=== PATIENT | female | born 1965 | race Caucasian/White ===

== ENCOUNTER 2020-06-29 06:41 | Inpatient (IN) | payer OTHER ==
[2020-06-29] MEDS ORDERED: Ondansetron PF 4 MG/2 ML Vial ONE (07:15)
[2020-06-29] MEDS ORDERED: Morphine 4 MG/ML VIAL ONE ×2 (07:15→08:47)
[2020-06-29] MEDS ORDERED: Boostrix 0.5 ML VIAL ONE (07:16)
[2020-06-29] MEDS ORDERED: Ampicillin/Sulbactam 3 GM in Sodium Chloride 0.9% 100 ML IVPB SCH (07:30)
--- NOTE | 2020-06-29 07:34 | RAD ---
Frontal and lateral imaging right forearm: 06/29/2020 COMPARISON: None HISTORY: Trauma, pain FINDINGS: No fracture or dislocation. No radiopaque foreign body or subcutaneous gas. IMPRESSION: No acute findings.
--- NOTE | 2020-06-29 07:34 | RAD ---
Right hand 3 views: 06/29/2020 COMPARISON: None available HISTORY: Trauma, pain FINDINGS: No fracture or dislocation. No radiopaque foreign body or subcutaneous gas. IMPRESSION: No acute findings.
[2020-06-29 07:47] LABS: #Eosinphils 0.3 thou/uL (0.0-0.7); #Lymphocytes 3.2 thou/uL (1.20-3.40); #Monocytes 0.8 thou/uL (0.11-0.59); #Neutrophils 8.2 thou/uL (1.40-6.50); %Basophils 0.3 % (0.0-1.0); %Eosinophils 2.1 % (0.0-10.0); %Lymphocytes 25.3 % (21.0-51.0); %Monocytes 6.1 % (0.0-10.0); %Neutrophils 66.2 % (42.0-75.0); Hemoglobin 13.6 g/dL (12.0-16.0); Mean Corpuscular HGB CONC 32.6 g/dL (32.0-36.0); Mean Platelet Volume 7.2 fL (7.4-10.4); Platelet Count 261 thou/uL (130-400); RBC Distribution Width 13.7 % (11.5-14.5); Red Blood Cell (RBC) Count 5.04 mill/uL (4.20-5.40); White Blood Cell (WBC) Count 12.5 thou/uL (4.8-10.8)
[2020-06-29 08:15] LABS: ALT (SGPT) 57 U/L (8-55); AST (SGOT) 50 U/L (5-34); Albumin 3.5 g/dL (3.5-5.0); Alkaline Phosphatase 141 U/L (40-110); Anion Gap 10 mmol/L (10-20); BUN (Urea Nitrogen) 14 mg/dL (9.8-20.1); Bilirubin, Total 0.4 mg/dL (0.2-1.2); Calc. Creatinine Clearance 0 mL/min (70-130); Calcium 8.6 mg/dL (7.8-10.44); Carbon Dioxide 24 mmol/L (22-29); Chloride 103 mmol/L (98-107); Estimated GFR-MDRD 61; Globulin 3.3 g/dL (2.4-3.5); Glucose 184 mg/dL (70-105); Potassium 4.1 mmol/L (3.5-5.1); Protein, Total 6.8 g/dL (6.0-8.3); Sodium 133 mmol/L (136-145)
--- NOTE | 2020-06-29 09:54 | PDOC.FPRHP ---
- History of Present Illness Chief Complaint: R arm redness/swelling/pain History of Present Illness: Patient is a 55F presenting with R arm cellulitis s/p getting bitten by her cats when they got in a fight last night. This morning, she noticed redness/pain /swelling of her R hand/wrist/forearm and was brought to the ED by her roommate. She denies fever/chills/N/V/D/dyspnea/SOB. Her cats are UTD on their vaccines and she received a tetanus booster in the ED. Her WBC was elevated at 12.5 and she was tachycardic in the ED so she meets sepsis criteria. LA wnl, normotensive. ED Course: 1L of NS. 3g Unasyn IV. - Allergies/Adverse Reactions Allergies Allergy/AdvReac Type Severity Reaction Status Date / Time No Known Drug Allergies Allergy Verified 06/29/20 07:27 - Home Medications Medication Instructions Recorded Confirmed Type Albuterol Sulfate HFA (OR) 2 puff PO PRN PRN 06/29/20 06/29/20 History [Proventil Hfa (or)] Benztropine Mesylate 2 mg PO DAILY 06/29/20 06/29/20 History Budesonide/Formoterol Fumarate 2 puff PO DAILY 06/29/20 06/29/20 History [Budesonide-Formoterol 160-4.5] Cyclobenzaprine [Flexeril] 1 tab PO PRN PRN 06/29/20 06/29/20 History DULoxetine [Cymbalta] 60 mg PO DAILY 06/29/20 06/29/20 History Gabapentin [Neurontin] 300 mg PO TID 06/29/20 06/29/20 History Lurasidone HCl [Latuda] 1 tab PO DAILY 06/29/20 06/29/20 History QUEtiapine Fumarate [SEROquel] 1 tab PO HS 06/29/20 06/29/20 History guanFACINE HCl [guanFACINE HCl ER] 1 mg PO BID 06/29/20 06/29/20 History - History PMHx: PSHx: FHx: Social: - Review of Systems General: denies: fever/chills Respiratory: denies: shortness of breath Cardiovascular: reports: edema (Of R UE only). denies: chest pain Gastrointestinal: denies: vomiting, diarrhea Musculoskeletal: reports: pain, tenderness, swelling Psychological: reports: other (Hx of psych disorder) - Vital signs BP: 132/86 HR: 112 RR: 20 Tmax: 98.7F Pox: 95% on RA Wt: 118kg - Physical Exam Constitutional: NAD, awake, alert and oriented, well developed HEENT: normocephalic and atraumatic, EOMI, grossly normal vision, grossly normal hearing Neck: supple Heart: RRR (tachy), normal S1/S2, no murmurs/rubs/gallops, pulses present ( radial and dp b/l) Lungs: CTAB, no respiratory distress, good air movement -Lungs: Diffuse mild wheezing Musculoskeletal: normal structure, ROM grossly normal Neurological: no focal deficit Skin: capillary refill <2 seconds Heme/Lymphatic: no unusual bruising or bleeding -Psychiatric: Slow to answer questions, appears to have a limited memory. Unclear whether this is d/t limited health literacy or her psych problems. A&O x3. FMR H&P: Results - Labs Result Diagrams: 06/29/20 07:30 06/29/20 07:30 Lab results: WBC 12.5 thou/uL (4.8-10.8) H 06/29/20 07:30 Hgb 13.6 g/dL (12.0-16.0) 06/29/20 07:30 Hct 41.8 % (36.0-47.0) 06/29/20 07:30 MCV 83.0 fL (78.0-98.0) 06/29/20 07:30 Plt Count 261 thou/uL (130-400) 06/29/20 07:30 Neutrophils % 66.2 % (42.0-75.0) 06/29/20 07:30 Sodium 133 mmol/L (136-145) L 06/29/20 07:30 Potassium 4.1 mmol/L (3.5-5.1) 06/29/20 07:30 Chloride 103 mmol/L (98-107) 06/29/20 07:30 Carbon Dioxide 24 mmol/L (22-29) 06/29/20 07:30 BUN 14 mg/dL (9.8-20.1) 06/29/20 07:30 Creatinine 0.96 mg/dL (0.6-1.1) 06/29/20 07:30 Glucose 184 mg/dL (70-105) H 06/29/20 07:30 Lactic Acid 1.1 mmol/L (0.5-2.2) 06/29/20 07:54 Calcium 8.6 mg/dL (7.8-10.44) 06/29/20 07:30 Total Bilirubin 0.4 mg/dL (0.2-1.2) 06/29/20 07:30 AST 50 U/L (5-34) H 06/29/20 07:30 ALT 57 U/L (8-55) H 06/29/20 07:30 Alkaline Phosphatase 141 U/L (40-110) H 06/29/20 07:30 Serum Total Protein 6.8 g/dL (6.0-8.3) 06/29/20 07:30 Albumin 3.5 g/dL (3.5-5.0) 06/29/20 07:30 FMR H&P: A/P - Plan This is a 55yo F pt presenting with R hand/forearm cellulitis. Sepsis 2/2 R UE cellulitis - SIRS: Tachycardic with WBCs 12.5 - LA 1.1 - Procal pending - Tetanus booster admin in ED - R hand and forearm XRs show no acute findings/foreign bodies - Unasyn 3g given in ED. Will continue q6h - Received 1L bolus in ED. Ordered another 1L bolus d/t continued tachycardia - Naproxen scheduled with Tramadol prn - BCx pending - Daily CBCs T2DM - Med rec shows patient takes Metformin but no DM dx - BG on arrival 184 - A1c 6.4% - Start home Metformin 500mg - Monitor BGs Mild transaminitis - AST 50, ALT 57, Alk Phos 141 - Daily CMPs Asthma - Uses albuterol and Symbicort inhalers at home - Continue albuterol Bipolar disorder - Documented in clinic chart - Continue home meds Drug-induced akathisia - Per clinic records - Continue home meds Dispo: Inpt floor, LOS >48h Diet: Diabetic diet DVT Ppx: SCDs Fluids: boluses, no mIVF FMR H&P: Upper Level - Plan Date/Time: 06/29/20 0953 I, [], have evaluated this patient and agree with findings/plan as outlined by internal audit senior manager resident. Pertinent changes/additions are listed here. Addendum - Attending - Attending Attestation Date/Time: 06/29/20 3618 I personally evaluated the patient and discussed the management with Dr. Jerson Robert. I agree with the History, Examination, Assessment and Plan documented above with any addition or exceptions noted below. PMH: asthma, DM, obesity PSH: reviewed not pertinent FH: noncontributory SH: denies T/E/D Meds: metformin, symbicort, albuterol NKDA Low suspcision for nec fasc or comp synd at this time. Continue unasyn. Await cultures.
[2020-06-29] MEDS ORDERED: Ondansetron PF 4 MG/2 ML Vial IVP PRN (10:43)
[2020-06-29] MEDS ORDERED: Ondansetron ODT 4 MG TAB SL PRN (10:43)
[2020-06-29 10:51] VITALS: BMI 47.5
[2020-06-29] MEDS: Acetaminophen 325 MG TAB PO PRN ×2 (11:06→15:53)
[2020-06-29] MEDS ORDERED: Lactated Ringer's 1,000 ML IV SCH (12:45)
[2020-06-29 13:16] LABS: Hemoglobin A1c 6.4 % (4.0-6.0)
[2020-06-29] MEDS: traMADol HCl 50 MG TAB PO PRN (13:37)
[2020-06-29] MEDS: Ampicillin/Sulbactam 3 GM in Sodium Chloride 0.9% 100 ML IVPB SCH ×2 (13:37→20:45)
[2020-06-29] MEDS: Naproxen 500 MG TAB PO SCH ×2 (14:35→20:42)
[2020-06-29 17:08] LABS: SARS-CoV-2 MS2 Positive; SARS-CoV-2 N Gene Negative; SARS-CoV-2 S Gene Negative; SARS-CoV-2 by NAA Not Detected (NotDetected); SARS-CoV-2 orf1ab Negative
[2020-06-29] MEDS ORDERED: Albuterol Sulfate 2.5 mg/3 ml Neb NEB PRN (18:15)
[2020-06-29] MEDS: Mometasone 200 MCG/Formoterol 5 MCG 120 PUFF INHALER INH SCH (19:08)
[2020-06-29] MEDS: Famotidine 20 MG TAB PO SCH (20:42)
[2020-06-29] MEDS: Gabapentin 300 MG CAP PO SCH (20:42)
[2020-06-29] MEDS ORDERED: GUANFACINE HCL 1 MG PO SCH (21:00)
[2020-06-30] MEDS: Ampicillin/Sulbactam 3 GM in Sodium Chloride 0.9% 100 ML IVPB SCH ×4 (01:44→19:43)
--- NOTE | 2020-06-30 05:48 | PDOC.FM ---
- Subjective Subjective: Sintia is doing better this morning. She endorses improvement in pain. She denies subjective fever/chills/V/D. - Objective Vital Signs & Weight: Vital Signs (12 hours) Temp Pulse Resp BP Pulse Ox 06/30/20 02:30 97.8 F 89 18 109/67 96 06/29/20 20:40 95 06/29/20 20:35 97.8 F 80 18 98/60 95 06/29/20 19:08 105 H 12 94 L Weight Weight 117.9 kg I&O: 06/28/20 06/29/20 06/30/20 06:59 06:59 06:59 Intake Total 600 Balance 600 Result Diagrams: 06/30/20 05:18 06/30/20 05:18 Phys Exam - Physical Examination Constitutional: NAD (Sleeping comfortably, easily arousable) Neck: supple Respiratory: no wheezing, no rales, clear to auscultation bilateral (Sounded a little tight, but no wheezing) Cardiovascular: RRR, no significant murmur Gastrointestinal: soft, non-tender, no distention, positive bowel sounds Musculoskeletal: pulses present (rabial pulses 2+ b/l), edema present (in R hand and forearm. Decreased from yesterday) Neurological: moves all 4 limbs Psychiatric: normal affect, A&O x 3 Skin: no rash Deviation from normal: Erythematous R hand/forearm, improved from yesterday Dx/Plan - Plan Plan: This is a 55yo F pt presenting with R hand/forearm cellulitis. Sepsis 2/2 R UE cellulitis - SIRS: Tachycardic with WBCs 12.5 - LA 1.1 - Procal pending - Tetanus booster admin in ED - R hand and forearm XRs show no acute findings/foreign bodies - Unasyn 3g given in ED. Will continue q6h - Received 1L bolus in ED. Ordered another 1L bolus d/t continued tachycardia - Naproxen scheduled with Tramadol prn - BCx pending - Daily CBCs. Normal today. T2DM - Med rec shows patient takes Metformin but no DM dx - BG on arrival 184 - A1c 6.4% - Start home Metformin 500mg - Monitor BGs Mild transaminitis - AST 50, ALT 57, Alk Phos 141 - Daily CMPs Asthma - Uses albuterol and Symbicort inhalers at home - Continue albuterol Bipolar disorder - Documented in clinic chart - Continue home meds Drug-induced akathisia - Per clinic records - Continue home meds Dispo: Inpt floor, LOS >48h Diet: Diabetic diet DVT Ppx: SCDs Fluids: boluses, no mIVF Addendum - Attending - Attending Attestation Date/Time: 06/30/20 1214 I personally evaluated the patient and discussed the management with Dr. Victoria. I agree with the History, Examination, Assessment and Plan documented above with any addition or exceptions noted below. Continue antibiotics. Consider switching to PO tomorrow. Improving on exam.
[2020-06-30 05:56] LABS: Hemoglobin 13.5 g/dL (12.0-16.0); Mean Corpuscular HGB CONC 32.2 g/dL (32.0-36.0); Mean Corpuscular Hemoglobin 27.2 pg (27.0-31.0); Mean Corpuscular Volume 84.4 fL (78.0-98.0); Mean Platelet Volume 7.3 fL (7.4-10.4); Platelet Count 237 thou/uL (130-400); RBC Distribution Width 13.9 % (11.5-14.5); Red Blood Cell (RBC) Count 4.97 mill/uL (4.20-5.40); White Blood Cell (WBC) Count 10.1 thou/uL (4.8-10.8)
[2020-06-30 06:02] LABS: Band 2 % (5-11); Eosinophils 3 % (0-10); Lymphocytes 28 % (21-51); MDiff Complete? YES; Monocytes 6 % (0-10); Neutrophil 60 % (42-75); Reactive Lymphocytes 1 % (0-10)
[2020-06-30 06:06] LABS: ALT (SGPT) 50 U/L (8-55); AST (SGOT) 48 U/L (5-34); Albumin 3.1 g/dL (3.5-5.0); Alkaline Phosphatase 127 U/L (40-110); Anion Gap 11 mmol/L (10-20); BUN (Urea Nitrogen) 10 mg/dL (9.8-20.1); Bilirubin, Total 0.4 mg/dL (0.2-1.2); Calc. Creatinine Clearance 148 mL/min (70-130); Calcium 8.5 mg/dL (7.8-10.44); Carbon Dioxide 23 mmol/L (22-29); Chloride 110 mmol/L (98-107); Estimated GFR-MDRD 74; Globulin 3.2 g/dL (2.4-3.5); Glucose 113 mg/dL (70-105); Potassium 4.2 mmol/L (3.5-5.1); Protein, Total 6.3 g/dL (6.0-8.3); Sodium 140 mmol/L (136-145)
[2020-06-30] MEDS: Mometasone 200 MCG/Formoterol 5 MCG 120 PUFF INHALER INH SCH ×2 (06:47→19:39)
[2020-06-30] MEDS: Benztropine 1 MG TAB PO SCH (08:11)
[2020-06-30] MEDS: DULoxetine 60 MG CAP PO SCH (08:11)
[2020-06-30] MEDS: Famotidine 20 MG TAB PO SCH ×2 (08:11→19:44)
[2020-06-30] MEDS: Gabapentin 300 MG CAP PO SCH ×3 (08:12→19:44)
[2020-06-30] MEDS: Naproxen 500 MG TAB PO SCH ×3 (08:12→19:44)
[2020-06-30] MEDS ORDERED: LURASIDONE HCL 40 MG PO SCH (09:00)
[2020-06-30] MEDS ORDERED: Cyclobenzaprine 10 MG TAB PO PRN (09:00)
[2020-07-01] MEDS: Ampicillin/Sulbactam 3 GM in Sodium Chloride 0.9% 100 ML IVPB SCH ×2 (02:07→08:33)
--- NOTE | 2020-07-01 05:49 | PDOC.FM ---
- Subjective Subjective: Patient says her right hand pain is well controlled. She is now able to move her hand and fingers with full ROM. She notes that the redness has progressed beyond the markings towards her elbow. She denies masses in axilla. She also denies headache, vision changes, chest pain, SOB, nausea, abdominal pain and lower extremity edema. - Objective MAR Reviewed: Yes Vital Signs & Weight: Vital Signs (12 hours) Pulse Resp Pulse Ox 06/30/20 20:00 96 06/30/20 19:39 93 16 96 Weight Weight 117.9 kg I&O: 06/29/20 06/30/20 07/01/20 06:59 06:59 06:59 Intake Total 1250 480 Balance 1250 480 Result Diagrams: 07/01/20 06:03 07/01/20 06:03 Phys Exam - Physical Examination Constitutional: NAD HEENT: moist MMs, sclera anicteric Neck: supple, full ROM Respiratory: no wheezing, clear to auscultation bilateral Cardiovascular: RRR, no significant murmur Gastrointestinal: soft, non-tender, positive bowel sounds Musculoskeletal: no edema, pulses present Right hand edema present. Full ROM. Nontender Erythema extends beyond border to elbow Neurological: non-focal, moves all 4 limbs Lymphatic: no nodes Psychiatric: normal affect, A&O x 3 Skin: no rash, cap refill <2 seconds Dx/Plan - Plan Plan: This is a 55yo F pt presenting with R hand/forearm cellulitis. Sepsis, now resolved 2/2 R UE cellulitis - Met SIRS criteria on admission: Tachycardic with WBCs 12.5. LA 1.1 - Tetanus booster admin in ED - R hand and forearm XRs show no acute findings/foreign bodies - BCx negative for growth - Will dc Unasyn and begin Rocefin and Clindamycin T2DM - Med rec shows patient takes Metformin but no DM dx - A1c 6.4% - Start home Metformin 500mg - Monitor BGs Mild transaminitis, resolved - AST 50, ALT 57, Alk Phos 141 on admission - now WNL Asthma - Uses albuterol and Symbicort inhalers at home - Continue albuterol Bipolar disorder - Documented in clinic chart - Continue home meds Drug-induced akathisia - Per clinic records - Continue home meds PCP: [facility] - Rehg DVT Ppx: SCDs Code: FULL Dispo: home pending symptom improvement Addendum - Attending - Attending Attestation Date/Time: 07/01/20 2366 I personally evaluated the patient and discussed the management with Dr. Baker. I agree with the History, Examination, Assessment and Plan documented above with any addition or exceptions noted below. The patient is able to make a fist with her fingers and notes a slight improvement in the swelling in her hand however the erythema has extended up to her elbow. Will change IV antibiotics as cellulitis appears to be worsening. Repeat labs.
[2020-07-01 06:57] LABS: ALT (SGPT) 47 U/L (8-55); AST (SGOT) 51 U/L (5-34); Alkaline Phosphatase 133 U/L (40-110); Anion Gap 13 mmol/L (10-20); BUN (Urea Nitrogen) 10 mg/dL (9.8-20.1); Bilirubin, Total 0.2 mg/dL (0.2-1.2); Calc. Creatinine Clearance 148 mL/min (70-130); Calcium 8.2 mg/dL (7.8-10.44); Carbon Dioxide 19 mmol/L (22-29); Chloride 113 mmol/L (98-107); Estimated GFR-MDRD 74; Globulin 3.3 g/dL (2.4-3.5); Glucose 138 mg/dL (70-105); Potassium 4.8 mmol/L (3.5-5.1); Protein, Total 6.3 g/dL (6.0-8.3); Sodium 140 mmol/L (136-145)
[2020-07-01] MEDS: Mometasone 200 MCG/Formoterol 5 MCG 120 PUFF INHALER INH SCH ×2 (07:02→19:01)
[2020-07-01 07:06] LABS: Hemoglobin 12.9 g/dL (12.0-16.0); Mean Corpuscular HGB CONC 31.6 g/dL (32.0-36.0); Mean Corpuscular Hemoglobin 26.1 pg (27.0-31.0); Mean Corpuscular Volume 82.5 fL (78.0-98.0); Mean Platelet Volume 7.6 fL (7.4-10.4); Platelet Count 241 thou/uL (130-400); Red Blood Cell (RBC) Count 4.95 mill/uL (4.20-5.40)
[2020-07-01 07:07] LABS: Band 10 % (5-11); Eosinophils 3 % (0-10); Lymphocytes 25 % (21-51); MDiff Complete? YES; Monocytes 4 % (0-10)
[2020-07-01] MEDS: Naproxen 500 MG TAB PO SCH ×4 (08:30→20:01)
[2020-07-01] MEDS: DULoxetine 60 MG CAP PO SCH (08:32)
[2020-07-01] MEDS: Benztropine 1 MG TAB PO SCH (08:32)
[2020-07-01] MEDS: Gabapentin 300 MG CAP PO SCH ×3 (08:32→19:55)
[2020-07-01] MEDS: Famotidine 20 MG TAB PO SCH ×2 (08:32→19:55)
[2020-07-01] MEDS: cefTRIAXone\\ROCEPHIN 2 GM in Sodium Chloride 0.9% 100 ML IVPB SCH (12:16)
[2020-07-01] MEDS: Clindamycin/D5W 600 MG in Premix Bag 1 BAG IVPB SCH ×2 (12:16→18:08)
[2020-07-02] MEDS: Clindamycin/D5W 600 MG in Premix Bag 1 BAG IVPB SCH ×5 (05:32→23:19)
--- NOTE | 2020-07-02 06:00 | PDOC.FM ---
- Subjective Subjective: Patient says her right hand swelling as improved since yesterday. She says the redness might appear worse to here but notes the border was washed off during her shower yesterday. She denies lightheadedness, sweating, headache, vision changes, chest pain, SOB, nausea, abdominal pain and lower extremity edema. - Objective MAR Reviewed: Yes Vital Signs & Weight: Vital Signs (12 hours) Temp Pulse Resp BP Pulse Ox 07/01/20 20:00 98.0 F 86 18 133/89 97 07/01/20 19:01 96 16 96 Weight Weight 117.9 kg I&O: 06/30/20 07/01/20 07/02/20 06:59 06:59 06:59 Intake Total 1250 1180 100 Balance 1250 1180 100 Result Diagrams: 07/02/20 07:35 07/02/20 07:35 Phys Exam - Physical Examination Constitutional: NAD HEENT: moist MMs, sclera anicteric Neck: supple, full ROM Respiratory: no wheezing, clear to auscultation bilateral Cardiovascular: RRR, no significant murmur Gastrointestinal: soft, non-tender, positive bowel sounds Musculoskeletal: no edema, pulses present Full ROM of right hand. Neurological: non-focal, moves all 4 limbs Psychiatric: normal affect, A&O x 3 Skin: no rash, cap refill <2 seconds Deviation from normal: Edema of right hand has improved since yesterday. -: Erythema unchanged from yesterday. Still extends to elbow. Dx/Plan - Plan Plan: This is a 55yo F pt presenting with R hand/forearm cellulitis. Sepsis, now resolved 2/2 R UE cellulitis - Met SIRS criteria on admission with tachycardia, WBCs 12.5. LA 1.1 - Tetanus booster admin in ED - R hand and forearm XRs show no acute findings/foreign bodies - BCx negative for growth at 48 hours - Unasyn started in ED and d/c on 07/01. - Continue Rocefin and Clindamycin. Edema improved today. T2DM - Med rec shows patient takes Metformin but no DM dx - A1c 6.4% - Start home Metformin 500mg - Monitor BGs Asthma - Uses albuterol and Symbicort inhalers at home - Continue albuterol Bipolar disorder - Documented in clinic chart - Continue home meds Drug-induced akathisia - Per clinic records - Continue home meds PCP: [facility] - Rehg DVT Ppx: SCDs Code: FULL Dispo: home pending symptom improvement Addendum - Attending - Attending Attestation Date/Time: 07/02/20 2070 I personally evaluated the patient and discussed the management with Dr. Baker. I agree with the History, Examination, Assessment and Plan documented above with any addition or exceptions noted below. The patient's hand edema is improved. Erythema has not worsened. It was up to her elbow yesterday and has not spread further. Will continue IV antibiotics and monitor.
[2020-07-02] MEDS: Mometasone 200 MCG/Formoterol 5 MCG 120 PUFF INHALER INH SCH ×2 (07:32→18:55)
[2020-07-02 08:14] LABS: ALT (SGPT) 51 U/L (8-55); AST (SGOT) 55 U/L (5-34); Albumin 3.1 g/dL (3.5-5.0); Alkaline Phosphatase 114 U/L (40-110); Anion Gap 11 mmol/L (10-20); BUN (Urea Nitrogen) 10 mg/dL (9.8-20.1); Bilirubin, Total 0.4 mg/dL (0.2-1.2); Calc. Creatinine Clearance 139 mL/min (70-130); Calcium 8.4 mg/dL (7.8-10.44); Carbon Dioxide 23 mmol/L (22-29); Chloride 111 mmol/L (98-107); Estimated GFR-MDRD 69; Globulin 3.1 g/dL (2.4-3.5); Glucose 135 mg/dL (70-105); Potassium 3.9 mmol/L (3.5-5.1); Protein, Total 6.2 g/dL (6.0-8.3); Sodium 141 mmol/L (136-145)
[2020-07-02 08:22] LABS: Eosinophils 4 % (0-10); Hemoglobin 12.3 g/dL (12.0-16.0); Lymphocytes 26 % (21-51); MDiff Complete? YES; Mean Corpuscular HGB CONC 32.7 g/dL (32.0-36.0); Mean Corpuscular Volume 82.6 fL (78.0-98.0); Mean Platelet Volume 7.4 fL (7.4-10.4); Monocytes 3 % (0-10); Neutrophil 66 % (42-75); Platelet Count 261 thou/uL (130-400); RBC Distribution Width 14.2 % (11.5-14.5); Red Blood Cell (RBC) Count 4.57 mill/uL (4.20-5.40); White Blood Cell (WBC) Count 7.4 thou/uL (4.8-10.8)
[2020-07-02] MEDS: Benztropine 1 MG TAB PO SCH (09:23)
[2020-07-02] MEDS: Famotidine 20 MG TAB PO SCH ×2 (09:24→22:21)
[2020-07-02] MEDS: Gabapentin 300 MG CAP PO SCH ×3 (09:24→22:22)
[2020-07-02] MEDS: DULoxetine 60 MG CAP PO SCH (09:25)
[2020-07-02] MEDS: cefTRIAXone\\ROCEPHIN 2 GM in Sodium Chloride 0.9% 100 ML IVPB SCH (13:04)
[2020-07-02] MEDS: Naproxen 500 MG TAB PO SCH ×2 (14:29→22:21)
[2020-07-03 05:34] LABS: ALT (SGPT) 52 U/L (8-55); AST (SGOT) 59 U/L (5-34); Albumin 3.1 g/dL (3.5-5.0); Alkaline Phosphatase 117 U/L (40-110); Anion Gap 12 mmol/L (10-20); BUN (Urea Nitrogen) 10 mg/dL (9.8-20.1); Bilirubin, Total 0.2 mg/dL (0.2-1.2); Calc. Creatinine Clearance 141 mL/min (70-130); Calcium 8.3 mg/dL (7.8-10.44); Carbon Dioxide 20 mmol/L (22-29); Chloride 112 mmol/L (98-107); Estimated GFR-MDRD 70; Globulin 3.3 g/dL (2.4-3.5); Glucose 105 mg/dL (70-105); Potassium 4.2 mmol/L (3.5-5.1); Protein, Total 6.4 g/dL (6.0-8.3); Sodium 140 mmol/L (136-145)
[2020-07-03] MEDS: Clindamycin/D5W 600 MG in Premix Bag 1 BAG IVPB SCH ×2 (05:35→11:47)
[2020-07-03 06:18] LABS: Mean Corpuscular HGB CONC 32.7 g/dL (32.0-36.0); Mean Corpuscular Hemoglobin 27.9 pg (27.0-31.0); Mean Corpuscular Volume 85.3 fL (78.0-98.0); Mean Platelet Volume 7.9 fL (7.4-10.4); Platelet Count 268 thou/uL (130-400); RBC Distribution Width 14.8 % (11.5-14.5); Red Blood Cell (RBC) Count 4.67 mill/uL (4.20-5.40); White Blood Cell (WBC) Count 8.6 thou/uL (4.8-10.8)
[2020-07-03 06:21] LABS: Band 3 % (5-11); Eosinophils 1 % (0-10); Lymphocytes 34 % (21-51); Monocytes 2 % (0-10); Neutrophil 60 % (42-75)
[2020-07-03 06:22] LABS: MDiff Complete? YES
--- NOTE | 2020-07-03 06:41 | PDOC.FM ---
- Subjective Subjective: Sintia is doing well this morning. The pain and swelling in her R arm are reduced although she is still concerned about the redness and swelling. She denies subjective fever, chills, N/V, D. - Objective Vital Signs & Weight: Vital Signs (12 hours) Temp Pulse Resp BP Pulse Ox 07/02/20 20:00 99 07/02/20 19:27 98.2 F 84 18 146/76 H 99 07/02/20 18:55 87 12 97 Weight Weight 117.9 kg I&O: 07/01/20 07/02/20 07/03/20 06:59 06:59 06:59 Intake Total 1180 100 Balance 1180 100 Result Diagrams: 07/03/20 04:52 07/03/20 04:52 Phys Exam - Physical Examination Constitutional: NAD (Was sleeping comfortably and easily arousable.) Neck: supple, full ROM Musculoskeletal: pulses present, edema present (Edema of R arm up to elbow. Bulge of edema on proximal posterior forearm. Decreased erythema from initial presentation but still more than L arm.) Neurological: non-focal, moves all 4 limbs (full ROM of R arm/wrist/fingers) Lymphatic: no nodes (R axillary and supraclavicular) Psychiatric: normal affect Skin: no rash Dx/Plan - Plan Plan: This is a 55yo F pt presenting with R hand/forearm cellulitis. Sepsis 2/2 R UE cellulitis - SIRS: Tachycardic with WBCs 12.5 - LA 1.1 - Procal pending - Tetanus booster admin in ED - Received 1L bolus in ED. Ordered another 1L bolus d/t continued tachycardia - R hand and forearm XRs show no acute findings/foreign bodies - Unasyn 3g given in ED. Discontinued 07/01 d/t worsening clinical picture. - Started Ceftriaxone and Clindamycin - Naproxen scheduled with Tramadol prn - BCx negative - Daily CBCs. Normal today. - Ready for discharge once significant clinical improvement has been made T2DM - Med rec shows patient takes Metformin but no DM dx - BG on arrival 184 - A1c 6.4% - Start home Metformin 500mg - Monitor BGs Mild transaminitis - AST 50, ALT 57, Alk Phos 141. - AST increasing, Alk Phos decreasing. Will continue to monitor - Daily CMPs Asthma - Uses albuterol and Symbicort inhalers at home - Continue albuterol Bipolar disorder - Documented in clinic chart - Continue home meds Drug-induced akathisia - Per clinic records - Continue home meds Dispo: Inpt floor, LOS >48h Diet: Diabetic diet DVT Ppx: SCDs Fluids: boluses, no mIVF
[2020-07-03] MEDS: Mometasone 200 MCG/Formoterol 5 MCG 120 PUFF INHALER INH SCH ×2 (07:29→17:59)
[2020-07-03] MEDS: Gabapentin 300 MG CAP PO SCH ×2 (07:58→15:27)
[2020-07-03] MEDS: Benztropine 1 MG TAB PO SCH (07:58)
[2020-07-03] MEDS: Naproxen 500 MG TAB PO SCH ×2 (07:59→15:27)
[2020-07-03] MEDS: DULoxetine 60 MG CAP PO SCH (07:59)
[2020-07-03] MEDS: Famotidine 20 MG TAB PO SCH (07:59)
[2020-07-03 08:16] VITALS: BP 134/86; TEMP 98
[2020-07-03] MEDS: cefTRIAXone\\ROCEPHIN 2 GM in Sodium Chloride 0.9% 100 ML IVPB SCH (11:44)
[2020-07-03] MEDS: traMADol HCl 50 MG TAB PO PRN (12:37)
--- NOTE | 2020-07-03 19:29 | PRG ---
DATE OF SERVICE: 07/03/2020 Ms. Srivastava was admitted with domestic cat bites to her right forearm. She has been on broad-spectrum IV antibiotics and seems to be improving clinically. She was given tetanus prophylaxis upon admission. She is likely be discharged in a day or two on I would suggest either Augmentin or Cleocin. Job ID: [id number]
--- NOTE | 2020-07-04 07:32 | DIS ---
DATE OF ADMISSION: 06/29/2020 DATE OF DISCHARGE: 07/03/2020 RESIDENT: Suzanna Lazaro MD ADMITTING ATTENDING: Wilber Mosley MD DISCHARGE ATTENDING: Marquis Chamorro MD CONSULTS: None. PROCEDURES: None. PRIMARY DIAGNOSIS: Sepsis secondary to right upper extremity cellulitis. SECONDARY DIAGNOSES: 1. Type 2 diabetes. 2. Bipolar disorder. 3. Asthma. DISCHARGE MEDICATIONS: 1. Augmentin 875/125 tablets, 1 tablet q.12 h. 2. Naproxen 500 mg t.i.d. 3. Benztropine 2 mg p.o. daily. 4. Flexeril 1 tablet p.r.n. 5. Budesonide/formoterol. 6. Latuda. 7. Gabapentin 300 mg t.i.d. 8. Guanfacine p.o. b.i.d. 9. Cymbalta 60 mg p.o. daily. 10. Proventil. 11. Seroquel 1 tablet p.o. h.s. DISCONTINUED MEDICATIONS: None. HISTORY OF PRESENT ILLNESS/HOSPITAL COURSE: This is a 55-year-old female who presented with right hand and forearm edema/erythema/pain after disrupting a cat fight the night before and getting bitten by 1 of them. Her cats are up to date on vaccines, and she received a tetanus booster in the ED. Hand and forearm x-rays in the ED showed no foreign bodies. She was tachycardic and had a white count of 12.5, so she met sepsis criteria. She was given 3 g of Unasyn in the ED which was continued q.6 h. until 07/01. The outline of the erythema was marked in the ED. While she was initially improving, by the weekend the erythema had spread proximal to her elbow. At that time, the swelling and pain were improved but still present, so she was changed from Unasyn to ceftriaxone and clindamycin on 07/01. Blood cultures resulted negative. There was continued improvement of the edema, erythema, pain over the next 48 hours indicating a good response to the antibiotics, so she was discharged. DISPOSITION: Stable. DISCHARGE INSTRUCTIONS: LOCATION: Home. DIET: Diabetic. ACTIVITY: As tolerated. FOLLOWUP: Recommended follow up with PCP (Dr. Terry) within 1 week. Job ID: [id number] [facility]
[2020-07-04 13:01] LABS: Neutrophil 57 % (42-75)
== END 2020-07-03 18:08 | disposition home or self-care (01) | DRG 872 ==
LOC: ERS 06:41 → T4-A 09:38
PROVIDERS: ADMIT Emergency Medicine; ATTEND Emergency Medicine
DX: A41.9 Sepsis, unspecified organism (principal); L03.113 Cellulitis of right upper limb; Z68.42 Body mass index [BMI] 45.0-49.9, adult; Z20.828 Contact with and (suspected) exposure to other viral communicable diseases; E11.9 Type 2 diabetes mellitus without complications; F31.9 Bipolar disorder, unspecified; J45.909 Unspecified asthma, uncomplicated; G25.71 Drug induced akathisia; E66.9 Obesity, unspecified; Z87.891 Personal history of nicotine dependence; Z79.51 Long term (current) use of inhaled steroids; Z79.899 Other long term (current) drug therapy; Z79.84 Long term (current) use of oral hypoglycemic drugs
CPT/HCPCS: 36415; 36416; 80053; 83036; 83605; 84145; 85007; 85025; 85027; 87040; 87635; 90471; 90715; 96361; 96365; 96375; 96376; J0295; J0696; J2270; J2405; J3490; U0003

== ENCOUNTER 2021-06-06 22:29 | Inpatient (IN) | payer MEDICARE, MEDICAID ==
[2021-06-06] MEDS ORDERED: Ondansetron PF 4 MG/2 ML Vial IVP PRN (23:33)
[2021-06-07] MEDS ORDERED: Polyethylene Glycol 3350 17 GM Packet PO PRN (00:40)
[2021-06-07] MEDS ORDERED: Polyethylene Glycol 3350 17 GM Packet PO SCH (00:41)
[2021-06-07] MEDS ORDERED: Albuterol 200 PUFF (6.7GM INHALER) INH PRN (00:54)
[2021-06-07 05:24] LABS: #Basophils 0.1 thou/uL (0.0-0.2); #Eosinphils 0.3 thou/uL (0.0-0.7); #Lymphocytes 3.2 thou/uL (1.20-3.40); #Monocytes 0.7 thou/uL (0.11-0.59); #Neutrophils 3.4 thou/uL (1.40-6.50); %Eosinophils 3.8 % (0.0-10.0); %Lymphocytes 41.9 % (21.0-51.0); %Monocytes 8.6 % (0.0-10.0); %Neutrophils 44.8 % (42.0-75.0); Hemoglobin 13.6 g/dL (12.0-16.0); Mean Corpuscular HGB CONC 34.1 g/dL (32.0-36.0); Mean Corpuscular Hemoglobin 27.9 pg (27.0-31.0); Mean Corpuscular Volume 81.9 fL (78.0-98.0); Mean Platelet Volume 7.4 fL (7.4-10.4); Platelet Count 269 thou/uL (130-400); RBC Distribution Width 13.5 % (11.5-14.5); Red Blood Cell (RBC) Count 4.86 mill/uL (4.20-5.40); White Blood Cell (WBC) Count 7.5 thou/uL (4.8-10.8)
[2021-06-07 05:44] LABS: Anion Gap 7 mmol/L (10-20); BUN (Urea Nitrogen) 10 mg/dL (9.8-20.1); Calc. Creatinine Clearance 86 mL/min (70-130); Calcium 9.2 mg/dL (7.8-10.44); Carbon Dioxide 27 mmol/L (22-29); Chloride 109 mmol/L (98-107); Glucose 85 mg/dL (70-105); Potassium 3.6 mmol/L (3.5-5.1); Sodium 139 mmol/L (136-145)
[2021-06-07] MEDS: Mometasone 200 MCG/Formoterol 5 MCG 120 PUFF INHALER INH SCH ×2 (07:24→18:53)
[2021-06-07] MEDS: metFORMIN 500 MG TAB PO SCH (09:37)
[2021-06-07] MEDS: DULoxetine 60 MG CAP PO SCH (09:37)
[2021-06-07] MEDS: Gabapentin 300 MG CAP PO SCH ×3 (09:37→20:52)
[2021-06-07] MEDS: Docusate 100 MG CAP PO SCH ×2 (09:38→20:52)
[2021-06-07] MEDS ORDERED: Magnevist 469MG/ML 20 ML VIAL ONE (10:05)
[2021-06-07 14:38] LABS: Follicle Stimulating Hormone 56.22 mIU/mL (See Ranges); Luteinizing Hormone 31.9 mIU/mL (See Ranges)
[2021-06-08] MEDS ORDERED: Fentanyl 100 MCG/2 ML VIAL ONE ×3 (07:14→11:39)
[2021-06-08] MEDS ORDERED: Famotidine/PF 20 mg/2ml Vial ONE (07:14)
[2021-06-08] MEDS ORDERED: Promethazine HCl 25 MG/ML VIAL IM PRN (07:35)
[2021-06-08] MEDS ORDERED: Promethazine HCl 25 MG/ML VIAL IVPB PRN (07:35)
[2021-06-08] MEDS ORDERED: PACU-Morphine 4MG/ML VIAL SLOW IVP PRN (07:35)
[2021-06-08] MEDS ORDERED: Rocuronium Bromide 10 MG/ML (10ML VIAL) ONE (07:40)
[2021-06-08] MEDS ORDERED: diphenhydrAMINE 50 MG/ML VIAL ONE (07:40)
[2021-06-08] MEDS ORDERED: Esmolol 100 MG/10 ML VIAL ONE (07:40)
[2021-06-08] MEDS ORDERED: PROPOFOL 200 MG/20 ML VIAL ONE (07:40)
[2021-06-08] MEDS ORDERED: Ondansetron PF 4 MG/2 ML Vial ONE (07:40)
[2021-06-08] MEDS ORDERED: PHENYLEPHRINE-NS 100 MCG/ML 10 ML SYRINGE ONE (07:40)
[2021-06-08] MEDS ORDERED: Lidocaine 1% PF 5 ML VIAL ONE (07:40)
[2021-06-08] MEDS ORDERED: Dexamethasone 20 MG/5 ML VIAL ONE (07:40)
[2021-06-08] MEDS ORDERED: Metoprolol Tartrate 5 MG/5 ML VIAL ONE (07:40)
[2021-06-08] MEDS ORDERED: SUGAMMADEX SODIUM 200 MG/2 ML VIAL ONE (09:01)
[2021-06-08 10:34] LABS: Fluid, Glucose 72 mg/dL (Not Available); Fluid, Protein Less than 1.0 g/dL (Not Available)
[2021-06-08] MEDS: Gabapentin 300 MG CAP PO SCH ×3 (10:34→21:20)
[2021-06-08] MEDS: Mometasone 200 MCG/Formoterol 5 MCG 120 PUFF INHALER INH SCH ×2 (10:34→19:33)
[2021-06-08] MEDS: DULoxetine 60 MG CAP PO SCH (10:34)
[2021-06-08] MEDS: Docusate 100 MG CAP PO SCH ×2 (10:34→21:20)
[2021-06-08] MEDS: metFORMIN 500 MG TAB PO SCH (10:35)
[2021-06-08 11:39] LABS: Ref Lab Test Ordered AFP CSF; Reference Lab Name LABCORP
[2021-06-08 11:40] LABS: CSF Source CSF; Clarity Clear (Clear); Ref Lab Test Ordered HCG CSF; Reference Lab Name LABCORP
[2021-06-08] MEDS ORDERED: Promethazine HCl 25 MG/ML VIAL ONE (11:40)
[2021-06-08] MEDS: CEFAZOLIN 2 GM in Premix Bag 1 BAG IVPB SCH ×2 (16:09→21:21)
[2021-06-09] MEDS: Acetaminophen 325 MG TAB PO PRN (04:39)
[2021-06-09] MEDS: CEFAZOLIN 2 GM in Premix Bag 1 BAG IVPB SCH ×3 (06:38→21:17)
[2021-06-09] MEDS: Mometasone 200 MCG/Formoterol 5 MCG 120 PUFF INHALER INH SCH (08:04)
[2021-06-09] MEDS: Docusate 100 MG CAP PO SCH ×2 (09:13→21:16)
[2021-06-09] MEDS: DULoxetine 60 MG CAP PO SCH (09:13)
[2021-06-09] MEDS: Gabapentin 300 MG CAP PO SCH ×3 (09:13→21:16)
[2021-06-09] MEDS: HYDROcodone/Acetaminophen 7.5/325 mg Tablet PO PRN ×2 (09:14→14:22)
[2021-06-09] MEDS: metFORMIN 500 MG TAB PO SCH (09:14)
[2021-06-09] MEDS ORDERED: Sterile Water 10 ML ONE (14:28)
[2021-06-09] MEDS: Arformoterol 15 MCG/2 ML NEB NEB SCH (19:06)
[2021-06-09] MEDS: Budesonide 0.5 MG/2 ML NEB NEB SCH (19:09)
[2021-06-09] MEDS: traMADol HCl 50 MG TAB PO PRN (19:17)
[2021-06-10] MEDS: CEFAZOLIN 2 GM in Premix Bag 1 BAG IVPB SCH ×3 (05:59→21:56)
[2021-06-10] MEDS: Arformoterol 15 MCG/2 ML NEB NEB SCH ×2 (06:47→19:18)
[2021-06-10] MEDS: Budesonide 0.5 MG/2 ML NEB NEB SCH ×2 (06:48→19:19)
[2021-06-10] MEDS: HYDROcodone/Acetaminophen 7.5/325 mg Tablet PO PRN (09:07)
[2021-06-10] MEDS: Gabapentin 300 MG CAP PO SCH ×3 (09:08→21:56)
[2021-06-10] MEDS: metFORMIN 500 MG TAB PO SCH (09:08)
[2021-06-10] MEDS: Docusate 100 MG CAP PO SCH ×2 (09:08→21:56)
[2021-06-10] MEDS: DULoxetine 60 MG CAP PO SCH (09:08)
[2021-06-11] MEDS: HYDROcodone/Acetaminophen 7.5/325 mg Tablet PO PRN (00:12)
[2021-06-11] MEDS: CEFAZOLIN 2 GM in Premix Bag 1 BAG IVPB SCH ×4 (05:59→21:01)
[2021-06-11] MEDS ORDERED: Fentanyl 250 MCG/5 ML VIAL ONE ×2 (06:50→12:55)
[2021-06-11] MEDS ORDERED: SUGAMMADEX SODIUM 200 MG/2 ML VIAL ONE (06:50)
[2021-06-11] MEDS ORDERED: Thrombin 5000 UNITS/5 ML VIAL ONE (06:53)
[2021-06-11] MEDS ORDERED: Bacitracin Zinc Ointment 30 gm TUBE ONE (06:53)
[2021-06-11] MEDS ORDERED: Propofol 1,000 MG/100 ML VIAL IV ONE ×2 (07:12→12:55)
[2021-06-11] MEDS ORDERED: Dexmedetomidine 200 MCG/2 ML VIAL ONE (07:12)
[2021-06-11] MEDS ORDERED: Vecuronium 10 MG VIAL ONE (07:12)
[2021-06-11] MEDS ORDERED: levETIRAcetam 500 MG/100 ML PREMIX BAG ONE (07:39)
[2021-06-11] MEDS ORDERED: Albumin 5% 500 ML ONE (07:39)
[2021-06-11] MEDS ORDERED: levETIRAcetam in NS 100 ML ONE (07:39)
[2021-06-11] MEDS ORDERED: Lidocaine 1% PF 5 ML VIAL ONE (08:14)
[2021-06-11] MEDS ORDERED: Esmolol 100 MG/10 ML VIAL ONE ×2 (08:14→12:55)
[2021-06-11] MEDS ORDERED: Dexamethasone 20 MG/5 ML VIAL ONE (08:14)
[2021-06-11] MEDS ORDERED: Rocuronium Bromide 10 MG/ML (10ML VIAL) ONE (08:14)
[2021-06-11] MEDS ORDERED: Albuterol Sulfate HFA (OR ONLY) ONE ×2 (08:14→08:32)
[2021-06-11] MEDS ORDERED: PROPOFOL 200 MG/20 ML VIAL ONE (08:14)
[2021-06-11] MEDS ORDERED: Ondansetron PF 4 MG/2 ML Vial ONE (08:14)
[2021-06-11] MEDS ORDERED: PHENYLEPHRINE-NS 100 MCG/ML 10 ML SYRINGE ONE (08:14)
[2021-06-11] MEDS: metFORMIN 500 MG TAB PO SCH (09:51)
[2021-06-11] MEDS: Arformoterol 15 MCG/2 ML NEB NEB SCH ×2 (09:51→19:02)
[2021-06-11] MEDS: Docusate 100 MG CAP PO SCH ×2 (09:51→19:43)
[2021-06-11] MEDS: DULoxetine 60 MG CAP PO SCH (09:51)
[2021-06-11] MEDS: Gabapentin 300 MG CAP PO SCH ×3 (09:51→19:43)
[2021-06-11] MEDS: Budesonide 0.5 MG/2 ML NEB NEB SCH ×2 (09:51→19:05)
[2021-06-11] MEDS ORDERED: Ondansetron ODT 4 MG TAB ONE (13:32)
[2021-06-11] MEDS ORDERED: Promethazine HCl 12.5 MG in Sodium Chloride 0.9% 50 ML IVPB PRN (14:26)
[2021-06-11] MEDS ORDERED: Meclizine HCl 12.5 MG TAB PO PRN (14:30)
[2021-06-11 15:24] LABS: Bilirubin Negative (Negative); Blood, Urine 2+ (Negative); Clarity Extra Turbid (Clear); Glucose, Urine (Dipstick) Normal (Negative); Ketone, Urine Negative (Negative); Leukocyte 500 Leu/uL (Negative); Nitrite Negative (Negative); Protein, Urine (Dipstick) 50 mg/dL (Neg-Trace); Specific Gravity, Urine 1.034 (1.002-1.036); Squamous Epithelial 0-3 HPF (0-3); Urobilinogen Normal mg/dL (Less than 2)
[2021-06-11 15:30] LABS: Bacteria/HPF 4+ HPF (None Seen); WBC/HPF 21-50 HPF (0-3)
[2021-06-11 15:31] LABS: Urine Culture Reflex Yes Yes
[2021-06-11 15:44] LABS: Actual Bicarbonate (HCO3a) 24.1 mEq/L (22-28); Base Excess (BEa) -1.4 mEq/L (-2.0 to +3.0); CO2 Tension 43.2 mmHg (35.0-45.0); Calcium, Ionized (arterial) 1.16 mmol/L (1.12-1.30); Carboxyhemoglobin (COHb) 0.3 gm% (0.0-3.0); Hemoglobin (Hb) 13.6 g/dL (12.0-16.0); O2 Tension (PaO2), arterial 127.8 mmHg (80.0-100.0); pH, Arterial 7.36 (7.35-7.45)
[2021-06-11 15:46] LABS: Puncture Site Arterial Line
[2021-06-11] MEDS: Ondansetron PF 4 MG/2 ML Vial IVP PRN (16:31)
[2021-06-11] MEDS: Dexamethasone 4 mg/ml Vial SLOW IVP SCH ×2 (16:43→22:52)
[2021-06-11] MEDS: Scopolamine 1.5 mg/72 hour Patch TD SCH (16:43)
[2021-06-11] MEDS: Morphine 2 MG/ML VIAL SLOW IVP PRN ×4 (17:19→21:00)
[2021-06-11] MEDS: Pantoprazole 40 MG VIAL IVP SCH (20:24)
[2021-06-11] MEDS: Labetalol HCl 100 MG/20 ML VIAL SLOW IVP PRN ×2 (21:14→21:56)
[2021-06-11] MEDS ORDERED: niCARdipine 25 MG in Sodium Chloride 0.9% 250 ML 240 ML IVPB SCH (22:30)
[2021-06-12] MEDS: Ondansetron PF 4 MG/2 ML Vial IVP PRN ×2 (02:50→09:20)
[2021-06-12] MEDS: Labetalol HCl 100 MG/20 ML VIAL SLOW IVP PRN (02:50)
[2021-06-12] MEDS: Morphine 2 MG/ML VIAL SLOW IVP PRN ×5 (03:03→22:38)
[2021-06-12] MEDS: hydrALAZINE 20 MG/ML VIAL SLOW IVP PRN ×2 (04:04→15:11)
[2021-06-12] MEDS: Dexamethasone 4 mg/ml Vial SLOW IVP SCH ×4 (04:04→22:38)
[2021-06-12] MEDS: CEFAZOLIN 2 GM in Premix Bag 1 BAG IVPB SCH ×3 (05:06→22:39)
[2021-06-12 05:20] LABS: Hemoglobin 12.8 g/dL (12.0-16.0); Mean Corpuscular HGB CONC 34.5 g/dL (32.0-36.0); Mean Corpuscular Hemoglobin 28.2 pg (27.0-31.0); Mean Corpuscular Volume 81.5 fL (78.0-98.0); Mean Platelet Volume 8.2 fL (7.4-10.4); Platelet Count 320 thou/uL (130-400); RBC Distribution Width 13.4 % (11.5-14.5); Red Blood Cell (RBC) Count 4.54 mill/uL (4.20-5.40); White Blood Cell (WBC) Count 17.8 thou/uL (4.8-10.8)
[2021-06-12 05:21] LABS: Band 5 % (5-11); Lymphocytes 7 % (21-51); MDiff Complete? YES; Monocytes 3 % (0-10); Neutrophil 83 % (42-75); Platelet Morphology Comment Appears Adequate; RBC Morphology Normal; Reactive Lymphocytes 2 % (0-10)
[2021-06-12 05:54] LABS: Anion Gap 12 mmol/L (10-20); BUN (Urea Nitrogen) 10 mg/dL (9.8-20.1); Calc. Creatinine Clearance 115 mL/min (70-130); Calcium 9.3 mg/dL (7.8-10.44); Carbon Dioxide 22 mmol/L (22-29); Chloride 103 mmol/L (98-107); Glucose 202 mg/dL (70-105); Potassium 4.3 mmol/L (3.5-5.1); Sodium 133 mmol/L (136-145)
[2021-06-12] MEDS ORDERED: Sodium Chloride 0.9% 10 ML ONE (07:29)
[2021-06-12] MEDS: Arformoterol 15 MCG/2 ML NEB NEB SCH ×2 (08:12→20:20)
[2021-06-12] MEDS: Budesonide 0.5 MG/2 ML NEB NEB SCH ×2 (08:12→20:20)
[2021-06-12] MEDS ORDERED: cefTRIAXone\\ROCEPHIN 1 GM in Sodium Chloride 0.9% 100 ML IVPB SCH (08:30)
[2021-06-12] MEDS: metFORMIN 500 MG TAB PO SCH (08:47)
[2021-06-12] MEDS: Amlodipine 5 MG TAB PO SCH ×2 (08:48→09:00)
[2021-06-12] MEDS: Docusate 100 MG CAP PO SCH ×3 (08:48→22:28)
[2021-06-12] MEDS: Gabapentin 300 MG CAP PO SCH ×3 (08:48→22:28)
[2021-06-12] MEDS: DULoxetine 60 MG CAP PO SCH ×2 (08:48→09:00)
[2021-06-12 15:36] LABS: Actual Bicarbonate (HCO3a) 20.3 mEq/L (22-28); Analyzer IN Cardio OR; Base Excess (BEa) -2.8 mEq/L (-2.0 to +3.0); CO2 Tension 30.1 mmHg (35.0-45.0); Carboxyhemoglobin (COHb) 0.1 gm% (0.0-3.0); Hemoglobin (Hb) 12.5 g/dL (12.0-16.0); Potassium - ABG Lab 3.84 mmol/L (3.70-5.30); pH, Arterial 7.45 (7.35-7.45)
[2021-06-12 15:36] LABS: Actual Bicarbonate (HCO3a) 21.8 mEq/L (22-28); Analyzer IN Cardio OR; Base Excess (BEa) -2.4 mEq/L (-2.0 to +3.0); CO2 Tension 35.7 mmHg (35.0-45.0); Carboxyhemoglobin (COHb) 0.1 gm% (0.0-3.0); Hemoglobin (Hb) 12.3 g/dL (12.0-16.0); Potassium - ABG Lab 4.33 mmol/L (3.70-5.30)
[2021-06-12 15:38] LABS: Puncture Site Arterial Line
[2021-06-12 15:41] LABS: Puncture Site Arterial Line
[2021-06-12] MEDS: Pantoprazole 40 MG VIAL IVP SCH (20:28)
[2021-06-13] MEDS: Morphine 2 MG/ML VIAL SLOW IVP PRN ×2 (01:17→03:10)
[2021-06-13] MEDS: Ondansetron PF 4 MG/2 ML Vial IVP PRN ×2 (03:15→08:15)
[2021-06-13] MEDS: CEFAZOLIN 2 GM in Premix Bag 1 BAG IVPB SCH ×3 (05:31→21:47)
[2021-06-13] MEDS: Dexamethasone 4 mg/ml Vial SLOW IVP SCH ×4 (05:31→23:36)
[2021-06-13 07:28] LABS: Hemoglobin 12.5 g/dL (12.0-16.0); Mean Corpuscular HGB CONC 33.3 g/dL (32.0-36.0); Mean Corpuscular Hemoglobin 27.1 pg (27.0-31.0); Mean Corpuscular Volume 81.2 fL (78.0-98.0); Mean Platelet Volume 7.9 fL (7.4-10.4); Platelet Count 347 thou/uL (130-400); RBC Distribution Width 13.5 % (11.5-14.5); Red Blood Cell (RBC) Count 4.62 mill/uL (4.20-5.40); White Blood Cell (WBC) Count 27.4 thou/uL (4.8-10.8)
[2021-06-13 07:39] LABS: Anion Gap 13 mmol/L (10-20); BUN (Urea Nitrogen) 13 mg/dL (9.8-20.1); Calc. Creatinine Clearance 90 mL/min (70-130); Calcium 9.7 mg/dL (7.8-10.44); Carbon Dioxide 22 mmol/L (22-29); Chloride 102 mmol/L (98-107); Glucose 178 mg/dL (70-105); Potassium 3.9 mmol/L (3.5-5.1); Sodium 133 mmol/L (136-145)
[2021-06-13] MEDS: Amlodipine 5 MG TAB PO SCH (08:29)
[2021-06-13 08:52] LABS: Band 8 % (5-11); Lymphocytes 6 % (21-51); MDiff Complete? YES; Monocytes 2 % (0-10); Neutrophil 84 % (42-75); Platelet Morphology Comment Appears Adequate; Polychromasia SLIGHT = 2-3 cells (100X) (0-2/hpf); Vacuoles SLIGHT
[2021-06-13] MEDS: Budesonide 0.5 MG/2 ML NEB NEB SCH ×2 (09:03→18:39)
[2021-06-13] MEDS: Arformoterol 15 MCG/2 ML NEB NEB SCH ×2 (09:03→18:39)
[2021-06-13] MEDS: DULoxetine 60 MG CAP PO SCH (10:41)
[2021-06-13] MEDS: metFORMIN 500 MG TAB PO SCH (10:41)
[2021-06-13] MEDS: Gabapentin 300 MG CAP PO SCH ×3 (10:42→21:48)
[2021-06-13] MEDS: Docusate 100 MG CAP PO SCH ×2 (10:42→21:48)
[2021-06-13] MEDS: Cefepime 1 GM in Sodium Chloride 0.9% 100 ML IVPB SCH (16:02)
[2021-06-13] MEDS: hydrALAZINE 20 MG/ML VIAL SLOW IVP PRN (17:17)
[2021-06-13] MEDS: Pantoprazole 40 MG VIAL IVP SCH (21:48)
[2021-06-14] MEDS: Cefepime 1 GM in Sodium Chloride 0.9% 100 ML IVPB SCH ×2 (02:55→13:24)
[2021-06-14 04:03] LABS: Hemoglobin 12.8 g/dL (12.0-16.0); Mean Corpuscular HGB CONC 33.4 g/dL (32.0-36.0); Mean Corpuscular Hemoglobin 26.9 pg (27.0-31.0); Mean Corpuscular Volume 80.7 fL (78.0-98.0); Mean Platelet Volume 7.7 fL (7.4-10.4); Platelet Count 373 thou/uL (130-400); RBC Distribution Width 13.7 % (11.5-14.5); Red Blood Cell (RBC) Count 4.76 mill/uL (4.20-5.40); White Blood Cell (WBC) Count 23.2 thou/uL (4.8-10.8)
[2021-06-14 04:08] LABS: Anion Gap 12 mmol/L (10-20); BUN (Urea Nitrogen) 16 mg/dL (9.8-20.1); Calc. Creatinine Clearance 107 mL/min (70-130); Carbon Dioxide 22 mmol/L (22-29); Chloride 105 mmol/L (98-107); Glucose 189 mg/dL (70-105); Potassium 3.9 mmol/L (3.5-5.1); Sodium 135 mmol/L (136-145)
[2021-06-14 04:29] LABS: Lymphocytes 6 % (21-51); MDiff Complete? YES; Monocytes 2 % (0-10); Neutrophil 92 % (42-75); Platelet Morphology Comment Appears Adequate; RBC Morphology Normal
[2021-06-14] MEDS: Dexamethasone 4 mg/ml Vial SLOW IVP SCH (04:49)
[2021-06-14] MEDS: CEFAZOLIN 2 GM in Premix Bag 1 BAG IVPB SCH (05:13)
[2021-06-14] MEDS: Gabapentin 300 MG CAP PO SCH ×3 (08:36→20:35)
[2021-06-14] MEDS: DULoxetine 60 MG CAP PO SCH (08:36)
[2021-06-14] MEDS: metFORMIN 500 MG TAB PO SCH (08:36)
[2021-06-14] MEDS: Docusate 100 MG CAP PO SCH ×2 (08:37→20:35)
[2021-06-14] MEDS: Amlodipine 5 MG TAB PO SCH (08:37)
[2021-06-14] MEDS: Arformoterol 15 MCG/2 ML NEB NEB SCH ×2 (08:40→18:48)
[2021-06-14] MEDS: Budesonide 0.5 MG/2 ML NEB NEB SCH ×2 (08:41→18:48)
[2021-06-14] MEDS: Dexamethasone 1 MG TAB PO SCH ×2 (13:19→17:06)
[2021-06-14] MEDS: Scopolamine 1.5 mg/72 hour Patch TD SCH (16:26)
[2021-06-15] MEDS: Dexamethasone 1 MG TAB PO SCH ×4 (00:10→17:42)
[2021-06-15] MEDS: Cefepime 1 GM in Sodium Chloride 0.9% 100 ML IVPB SCH ×2 (01:15→14:27)
[2021-06-15 04:12] LABS: Anion Gap 13 mmol/L (10-20); BUN (Urea Nitrogen) 19 mg/dL (9.8-20.1); Calc. Creatinine Clearance 102 mL/min (70-130); Calcium 9.8 mg/dL (7.8-10.44); Carbon Dioxide 20 mmol/L (22-29); Chloride 108 mmol/L (98-107); Glucose 160 mg/dL (70-105); Potassium 4.2 mmol/L (3.5-5.1); Sodium 137 mmol/L (136-145)
[2021-06-15 04:49] LABS: Band 3 % (5-11); Hemoglobin 12.4 g/dL (12.0-16.0); Lymphocytes 5 % (21-51); MDiff Complete? YES; Mean Corpuscular Hemoglobin 26.8 pg (27.0-31.0); Mean Corpuscular Volume 81.4 fL (78.0-98.0); Monocytes 8 % (0-10); Neutrophil 84 % (42-75); Platelet Count 348 thou/uL (130-400); RBC Distribution Width 13.6 % (11.5-14.5); Red Blood Cell (RBC) Count 4.64 mill/uL (4.20-5.40); White Blood Cell (WBC) Count 15.4 thou/uL (4.8-10.8)
[2021-06-15] MEDS: Budesonide 0.5 MG/2 ML NEB NEB SCH ×2 (08:28→19:29)
[2021-06-15] MEDS: Arformoterol 15 MCG/2 ML NEB NEB SCH ×2 (08:28→19:29)
[2021-06-15] MEDS: Amlodipine 5 MG TAB PO SCH (09:23)
[2021-06-15] MEDS: DULoxetine 60 MG CAP PO SCH (09:23)
[2021-06-15] MEDS: Docusate 100 MG CAP PO SCH ×2 (09:23→21:37)
[2021-06-15] MEDS: Gabapentin 300 MG CAP PO SCH ×3 (09:24→21:37)
[2021-06-15] MEDS: metFORMIN 500 MG TAB PO SCH (09:24)
[2021-06-15] MEDS: HYDROcodone/Acetaminophen 7.5/325 mg Tablet PO PRN (10:07)
[2021-06-16] MEDS: Dexamethasone 1 MG TAB PO SCH ×4 (00:25→20:07)
[2021-06-16] MEDS: Cefepime 1 GM in Sodium Chloride 0.9% 100 ML IVPB SCH ×2 (02:14→14:46)
[2021-06-16 04:34] LABS: Anion Gap 12 mmol/L (10-20); BUN (Urea Nitrogen) 20 mg/dL (9.8-20.1); Calc. Creatinine Clearance 118 mL/min (70-130); Calcium 9.5 mg/dL (7.8-10.44); Carbon Dioxide 22 mmol/L (22-29); Chloride 106 mmol/L (98-107); Glucose 156 mg/dL (70-105); Sodium 136 mmol/L (136-145)
[2021-06-16 05:35] LABS: Band 6 % (5-11); Hemoglobin 12.6 g/dL (12.0-16.0); Lymphocytes 17 % (21-51); MDiff Complete? YES; Mean Corpuscular HGB CONC 34.2 g/dL (32.0-36.0); Mean Corpuscular Hemoglobin 27.9 pg (27.0-31.0); Mean Corpuscular Volume 81.5 fL (78.0-98.0); Mean Platelet Volume 7.4 fL (7.4-10.4); Monocytes 6 % (0-10); Neutrophil 67 % (42-75); Platelet Count 380 thou/uL (130-400); Platelet Morphology Comment Appears Adequate; Polychromasia SLIGHT = 2-3 cells (100X) (0-2/hpf); RBC Distribution Width 13.3 % (11.5-14.5); Reactive Lymphocytes 4 % (0-10); Red Blood Cell (RBC) Count 4.51 mill/uL (4.20-5.40); White Blood Cell (WBC) Count 10.5 thou/uL (4.8-10.8)
[2021-06-16] MEDS: Arformoterol 15 MCG/2 ML NEB NEB SCH ×2 (08:16→19:48)
[2021-06-16] MEDS: Budesonide 0.5 MG/2 ML NEB NEB SCH ×2 (08:16→19:48)
[2021-06-16] MEDS: metFORMIN 500 MG TAB PO SCH (08:38)
[2021-06-16] MEDS: HYDROcodone/Acetaminophen 7.5/325 mg Tablet PO PRN (08:38)
[2021-06-16] MEDS: Amlodipine 5 MG TAB PO SCH (08:39)
[2021-06-16] MEDS: DULoxetine 60 MG CAP PO SCH (08:39)
[2021-06-16] MEDS: Gabapentin 300 MG CAP PO SCH ×3 (08:39→20:07)
[2021-06-16] MEDS: Docusate 100 MG CAP PO SCH ×2 (08:39→20:07)
[2021-06-17] MEDS: Dexamethasone 1 MG TAB PO SCH ×2 (00:09→05:26)
[2021-06-17] MEDS: Cefepime 1 GM in Sodium Chloride 0.9% 100 ML IVPB SCH ×2 (01:29→13:43)
[2021-06-17 04:31] LABS: ALT (SGPT) 16 U/L (8-55); AST (SGOT) 22 U/L (5-34); Albumin 3.4 g/dL (3.5-5.0); Alkaline Phosphatase 97 U/L (40-110); Anion Gap 12 mmol/L (10-20); BUN (Urea Nitrogen) 20 mg/dL (9.8-20.1); Bilirubin, Total 0.5 mg/dL (0.2-1.2); Calc. Creatinine Clearance 114 mL/min (70-130); Calcium 9.4 mg/dL (7.8-10.44); Carbon Dioxide 23 mmol/L (22-29); Chloride 104 mmol/L (98-107); Globulin 3.7 g/dL (2.4-3.5); Glucose 135 mg/dL (70-105); Magnesium 1.9 mg/dL (1.6-2.6); Phosphorus 2.9 mg/dL (2.3-4.7); Protein, Total 7.1 g/dL (6.0-8.3); Sodium 135 mmol/L (136-145)
[2021-06-17 04:36] LABS: Hemoglobin 13.1 g/dL (12.0-16.0); Mean Corpuscular HGB CONC 33.7 g/dL (32.0-36.0); Mean Corpuscular Hemoglobin 27.5 pg (27.0-31.0); Mean Corpuscular Volume 81.5 fL (78.0-98.0); Mean Platelet Volume 7.6 fL (7.4-10.4); Platelet Count 421 thou/uL (130-400); RBC Distribution Width 13.2 % (11.5-14.5); Red Blood Cell (RBC) Count 4.78 mill/uL (4.20-5.40); White Blood Cell (WBC) Count 12.8 thou/uL (4.8-10.8)
[2021-06-17 05:30] LABS: Band 4 % (5-11); Lymphocytes 30 % (21-51); MDiff Complete? YES; Monocytes 3 % (0-10); Neutrophil 63 % (42-75)
[2021-06-17] MEDS: Budesonide 0.5 MG/2 ML NEB NEB SCH ×2 (08:26→19:43)
[2021-06-17] MEDS: Arformoterol 15 MCG/2 ML NEB NEB SCH ×2 (08:26→19:42)
[2021-06-17] MEDS: Docusate 100 MG CAP PO SCH ×2 (08:50→20:54)
[2021-06-17] MEDS: HYDROcodone/Acetaminophen 7.5/325 mg Tablet PO PRN (09:24)
[2021-06-17] MEDS: Amlodipine 5 MG TAB PO SCH (09:24)
[2021-06-17] MEDS: metFORMIN 500 MG TAB PO SCH (09:24)
[2021-06-17] MEDS: DULoxetine 60 MG CAP PO SCH (09:24)
[2021-06-17] MEDS: Gabapentin 300 MG CAP PO SCH ×3 (09:27→20:54)
[2021-06-17] MEDS: Cyclobenzaprine 10 MG TAB PO PRN (09:27)
[2021-06-17] MEDS: Scopolamine 1.5 mg/72 hour Patch TD SCH (17:17)
[2021-06-18] MEDS: Cefepime 1 GM in Sodium Chloride 0.9% 100 ML IVPB SCH (02:20)
[2021-06-18 04:32] LABS: Phosphorus 3.2 mg/dL (2.3-4.7)
[2021-06-18 04:37] LABS: ALT (SGPT) 18 U/L (8-55); AST (SGOT) 17 U/L (5-34); Albumin 3.4 g/dL (3.5-5.0); Alkaline Phosphatase 96 U/L (40-110); Anion Gap 12 mmol/L (10-20); BUN (Urea Nitrogen) 20 mg/dL (9.8-20.1); Bilirubin, Total 0.5 mg/dL (0.2-1.2); Calc. Creatinine Clearance 117 mL/min (70-130); Carbon Dioxide 22 mmol/L (22-29); Chloride 102 mmol/L (98-107); Globulin 3.5 g/dL (2.4-3.5); Glucose 122 mg/dL (70-105); Magnesium 1.8 mg/dL (1.6-2.6); Potassium 3.8 mmol/L (3.5-5.1); Protein, Total 6.9 g/dL (6.0-8.3); Sodium 132 mmol/L (136-145)
[2021-06-18 04:38] LABS: Hemoglobin 13.7 g/dL (12.0-16.0); Mean Corpuscular HGB CONC 33.8 g/dL (32.0-36.0); Mean Corpuscular Hemoglobin 27.3 pg (27.0-31.0); Mean Corpuscular Volume 80.8 fL (78.0-98.0); Mean Platelet Volume 7.7 fL (7.4-10.4); Platelet Count 388 thou/uL (130-400); RBC Distribution Width 13.3 % (11.5-14.5); Red Blood Cell (RBC) Count 5.01 mill/uL (4.20-5.40); White Blood Cell (WBC) Count 16.7 thou/uL (4.8-10.8)
[2021-06-18 05:09] LABS: Band 2 % (5-11); Eosinophils 1 % (0-10); Lymphocytes 42 % (21-51); MDiff Complete? YES; Monocytes 4 % (0-10); Neutrophil 50 % (42-75); Nucleated RBC 1 % (0); Reactive Lymphocytes 1 % (0-10)
[2021-06-18] MEDS: Budesonide 0.5 MG/2 ML NEB NEB SCH ×2 (08:18→20:25)
[2021-06-18] MEDS: Arformoterol 15 MCG/2 ML NEB NEB SCH ×2 (08:18→20:25)
[2021-06-18] MEDS: Docusate 100 MG CAP PO SCH ×2 (09:25→21:11)
[2021-06-18] MEDS: Cyclobenzaprine 10 MG TAB PO PRN (09:25)
[2021-06-18] MEDS: Amlodipine 5 MG TAB PO SCH (09:25)
[2021-06-18] MEDS: traMADol HCl 50 MG TAB PO PRN (09:25)
[2021-06-18] MEDS: CEFAZOLIN 2 GM in Premix Bag 1 BAG IVPB SCH ×2 (09:25→16:28)
[2021-06-18] MEDS: metFORMIN 500 MG TAB PO SCH (09:25)
[2021-06-18] MEDS: Gabapentin 300 MG CAP PO SCH ×3 (09:26→21:10)
[2021-06-18] MEDS: DULoxetine 60 MG CAP PO SCH (09:26)
[2021-06-18] MEDS: Morphine 2 MG/ML VIAL SLOW IVP PRN ×2 (10:39→19:52)
[2021-06-18] MEDS ORDERED: Cefepime 1 GM in Sodium Chloride 0.9% 100 ML IVPB SCH (14:00)
[2021-06-18] MEDS: Ondansetron PF 4 MG/2 ML Vial IVP PRN (19:00)
[2021-06-19] MEDS: CEFAZOLIN 2 GM in Premix Bag 1 BAG IVPB SCH ×3 (00:37→16:05)
[2021-06-19] MEDS: Morphine 2 MG/ML VIAL SLOW IVP PRN ×3 (01:39→22:51)
[2021-06-19 04:29] LABS: Anion Gap 11 mmol/L (10-20); BUN (Urea Nitrogen) 15 mg/dL (9.8-20.1); Calc. Creatinine Clearance 116 mL/min (70-130); Calcium 9.2 mg/dL (7.8-10.44); Carbon Dioxide 22 mmol/L (22-29); Chloride 99 mmol/L (98-107); Glucose 134 mg/dL (70-105); Sodium 128 mmol/L (136-145)
[2021-06-19 05:14] LABS: Band 6 % (5-11); Eosinophils 1 % (0-10); Hemoglobin 13.7 g/dL (12.0-16.0); Lymphocytes 28 % (21-51); MDiff Complete? YES; Mean Corpuscular HGB CONC 34.3 g/dL (32.0-36.0); Mean Corpuscular Hemoglobin 27.8 pg (27.0-31.0); Mean Corpuscular Volume 81.1 fL (78.0-98.0); Mean Platelet Volume 7.2 fL (7.4-10.4); Monocytes 6 % (0-10); Neutrophil 59 % (42-75); Platelet Count 396 thou/uL (130-400); RBC Distribution Width 13.3 % (11.5-14.5); Red Blood Cell (RBC) Count 4.94 mill/uL (4.20-5.40)
[2021-06-19] MEDS: Arformoterol 15 MCG/2 ML NEB NEB SCH ×2 (08:03→19:05)
[2021-06-19] MEDS: Budesonide 0.5 MG/2 ML NEB NEB SCH ×2 (08:04→19:05)
[2021-06-19] MEDS: Amlodipine 5 MG TAB PO SCH (08:22)
[2021-06-19] MEDS: Docusate 100 MG CAP PO SCH ×2 (08:22→20:31)
[2021-06-19] MEDS: DULoxetine 60 MG CAP PO SCH (08:22)
[2021-06-19] MEDS: metFORMIN 500 MG TAB PO SCH (08:23)
[2021-06-19] MEDS: Gabapentin 300 MG CAP PO SCH ×3 (08:23→20:32)
[2021-06-19] MEDS: Enoxaparin Sodium 40 MG/0.4 ML SYRINGE SC SCH (08:23)
[2021-06-19] MEDS: Acetaminophen 325 MG TAB PO PRN (08:24)
[2021-06-20] MEDS: CEFAZOLIN 2 GM in Premix Bag 1 BAG IVPB SCH ×3 (01:20→16:50)
[2021-06-20 04:11] LABS: Hemoglobin 12.6 g/dL (12.0-16.0); Mean Corpuscular HGB CONC 34.6 g/dL (32.0-36.0); Platelet Count 364 thou/uL (130-400); RBC Distribution Width 13.2 % (11.5-14.5); Red Blood Cell (RBC) Count 4.49 mill/uL (4.20-5.40); White Blood Cell (WBC) Count 15.4 thou/uL (4.8-10.8)
[2021-06-20 04:18] LABS: Anion Gap 14 mmol/L (10-20); BUN (Urea Nitrogen) 16 mg/dL (9.8-20.1); Calc. Creatinine Clearance 111 mL/min (70-130); Carbon Dioxide 17 mmol/L (22-29); Chloride 101 mmol/L (98-107); Glucose 131 mg/dL (70-105); Potassium 3.9 mmol/L (3.5-5.1); Sodium 128 mmol/L (136-145)
[2021-06-20 04:44] LABS: Band 4 % (5-11); Lymphocytes 24 % (21-51); MDiff Complete? YES; Monocytes 7 % (0-10); Neutrophil 65 % (42-75)
[2021-06-20] MEDS: HYDROcodone/Acetaminophen 7.5/325 mg Tablet PO PRN ×2 (05:01→21:52)
[2021-06-20] MEDS: Gabapentin 300 MG CAP PO SCH ×3 (09:22→21:48)
[2021-06-20] MEDS: Enoxaparin Sodium 40 MG/0.4 ML SYRINGE SC SCH (09:22)
[2021-06-20] MEDS: Docusate 100 MG CAP PO SCH ×2 (09:23→21:48)
[2021-06-20] MEDS: DULoxetine 60 MG CAP PO SCH (09:23)
[2021-06-20] MEDS: Amlodipine 5 MG TAB PO SCH (09:23)
[2021-06-20] MEDS: metFORMIN 500 MG TAB PO SCH (09:23)
[2021-06-20] MEDS: Arformoterol 15 MCG/2 ML NEB NEB SCH ×2 (11:35→23:00)
[2021-06-20] MEDS: Budesonide 0.5 MG/2 ML NEB NEB SCH ×2 (11:37→19:19)
[2021-06-20] MEDS: Sodium Chloride 0.9% 1,000 ML IV SCH (12:37)
[2021-06-20] MEDS: Scopolamine 1.5 mg/72 hour Patch TD SCH (16:15)
[2021-06-20] MEDS: Acetaminophen 325 MG TAB PO PRN (21:51)
[2021-06-21] MEDS: Sodium Chloride 0.9% 1,000 ML IV SCH ×3 (00:16→20:45)
[2021-06-21] MEDS: CEFAZOLIN 2 GM in Premix Bag 1 BAG IVPB SCH ×3 (00:58→19:13)
[2021-06-21 04:19] LABS: Hemoglobin 11.6 g/dL (12.0-16.0); Mean Corpuscular HGB CONC 34.1 g/dL (32.0-36.0); Mean Corpuscular Hemoglobin 27.7 pg (27.0-31.0); Mean Corpuscular Volume 81.3 fL (78.0-98.0); Mean Platelet Volume 7.4 fL (7.4-10.4); Platelet Count 321 thou/uL (130-400); RBC Distribution Width 13.2 % (11.5-14.5); Red Blood Cell (RBC) Count 4.17 mill/uL (4.20-5.40); White Blood Cell (WBC) Count 13.2 thou/uL (4.8-10.8)
[2021-06-21 04:23] LABS: Anion Gap 13 mmol/L (10-20); BUN (Urea Nitrogen) 14 mg/dL (9.8-20.1); Calc. Creatinine Clearance 123 mL/min (70-130); Calcium 8.9 mg/dL (7.8-10.44); Carbon Dioxide 21 mmol/L (22-29); Chloride 101 mmol/L (98-107); Glucose 108 mg/dL (70-105); Potassium 3.5 mmol/L (3.5-5.1); Sodium 131 mmol/L (136-145)
[2021-06-21 05:26] LABS: Band 7 % (5-11); Eosinophils 3 % (0-10); Lymphocytes 35 % (21-51); MDiff Complete? YES; Monocytes 7 % (0-10); Neutrophil 48 % (42-75)
[2021-06-21] MEDS ORDERED: Lidocaine 0.5%/Epinephrine 1:200,000 50 ml Vial ONE (06:35)
[2021-06-21] MEDS ORDERED: Thrombin 5000 UNITS/5 ML VIAL ONE (06:35)
[2021-06-21] MEDS ORDERED: SUGAMMADEX SODIUM 200 MG/2 ML VIAL ONE ×2 (06:45→06:46)
[2021-06-21] MEDS ORDERED: Dexmedetomidine 200 MCG/2 ML VIAL ONE (06:45)
[2021-06-21] MEDS ORDERED: Fentanyl 100 MCG/2 ML VIAL ONE ×2 (06:45→10:18)
[2021-06-21] MEDS ORDERED: Bupivacaine 0.25% HCL 30 ML VIAL ONE (06:53)
[2021-06-21] MEDS ORDERED: EPINEPHrine 1 MG/ML AMP ONE (06:53)
[2021-06-21] MEDS ORDERED: Rocuronium Bromide 10 MG/ML (10ML VIAL) ONE (07:50)
[2021-06-21] MEDS ORDERED: Ondansetron PF 4 MG/2 ML Vial ONE (07:50)
[2021-06-21] MEDS ORDERED: Lidocaine 1% PF 5 ML VIAL ONE (07:50)
[2021-06-21] MEDS ORDERED: PROPOFOL 200 MG/20 ML VIAL ONE (07:50)
[2021-06-21] MEDS ORDERED: Dexamethasone 20 MG/5 ML VIAL ONE (07:50)
[2021-06-21] MEDS: Arformoterol 15 MCG/2 ML NEB NEB SCH ×2 (08:59→19:13)
[2021-06-21] MEDS: Budesonide 0.5 MG/2 ML NEB NEB SCH ×2 (09:00→19:13)
[2021-06-21] MEDS ORDERED: Ondansetron HCl/PF 4 MG/2 ML Vial IVP PRN (09:28)
[2021-06-21] MEDS ORDERED: Promethazine HCl 25 MG/ML VIAL IM PRN (09:28)
[2021-06-21] MEDS ORDERED: Promethazine HCl 25 MG/ML VIAL IVPB PRN (09:28)
[2021-06-21 09:40] VITALS: BMI 37.3
[2021-06-21] MEDS: Amlodipine 5 MG TAB PO SCH (15:22)
[2021-06-21] MEDS: metFORMIN 500 MG TAB PO SCH (15:23)
[2021-06-21] MEDS: Gabapentin 300 MG CAP PO SCH ×2 (15:23→20:44)
[2021-06-21] MEDS: Docusate 100 MG CAP PO SCH ×2 (15:23→20:44)
[2021-06-21] MEDS: Enoxaparin Sodium 40 MG/0.4 ML SYRINGE SC SCH (15:23)
[2021-06-21] MEDS: DULoxetine 60 MG CAP PO SCH (15:23)
[2021-06-21] MEDS: HYDROcodone/Acetaminophen 7.5/325 mg Tablet PO PRN (20:44)
[2021-06-22] MEDS: CEFAZOLIN 2 GM in Premix Bag 1 BAG IVPB SCH (01:29)
[2021-06-22 05:24] LABS: Band 1 % (5-11); Hemoglobin 11.9 g/dL (12.0-16.0); Hypochromia SLIGHT = 6-15 cells (100X) (0-5/hpf); Lymphocytes 22 % (21-51); MDiff Complete? YES; Mean Corpuscular HGB CONC 33.9 g/dL (32.0-36.0); Mean Corpuscular Hemoglobin 28.1 pg (27.0-31.0); Mean Platelet Volume 7.6 fL (7.4-10.4); Monocytes 15 % (0-10); Neutrophil 60 % (42-75); Platelet Count 294 thou/uL (130-400); Platelet Morphology Comment Appears Adequate; RBC Distribution Width 13.8 % (11.5-14.5); Reactive Lymphocytes 2 % (0-10); Red Blood Cell (RBC) Count 4.24 mill/uL (4.20-5.40); White Blood Cell (WBC) Count 16.8 thou/uL (4.8-10.8)
[2021-06-22 05:30] LABS: Anion Gap 11 mmol/L (10-20); BUN (Urea Nitrogen) 9 mg/dL (9.8-20.1); Calc. Creatinine Clearance 129 mL/min (70-130); Calcium 8.9 mg/dL (7.8-10.44); Carbon Dioxide 22 mmol/L (22-29); Chloride 106 mmol/L (98-107); Glucose 107 mg/dL (70-105); Potassium 3.8 mmol/L (3.5-5.1); Sodium 135 mmol/L (136-145)
[2021-06-22] MEDS: Sodium Chloride 0.9% 1,000 ML IV SCH ×2 (06:37→14:56)
[2021-06-22] MEDS: Arformoterol 15 MCG/2 ML NEB NEB SCH ×2 (06:53→19:35)
[2021-06-22] MEDS: Budesonide 0.5 MG/2 ML NEB NEB SCH ×2 (06:54→19:36)
[2021-06-22] MEDS: Enoxaparin Sodium 40 MG/0.4 ML SYRINGE SC SCH (09:09)
[2021-06-22] MEDS: Gabapentin 300 MG CAP PO SCH ×3 (09:10→20:04)
[2021-06-22] MEDS: DULoxetine 60 MG CAP PO SCH (09:11)
[2021-06-22] MEDS: metFORMIN 500 MG TAB PO SCH (09:11)
[2021-06-22] MEDS: Docusate 100 MG CAP PO SCH ×2 (09:11→20:05)
[2021-06-22] MEDS: Amlodipine 5 MG TAB PO SCH (09:18)
[2021-06-22] MEDS: Acetaminophen 325 MG TAB PO PRN (10:01)
[2021-06-22] MEDS: Ondansetron PF 4 MG/2 ML Vial IVP PRN (13:30)
[2021-06-22] MEDS ORDERED: Promethazine 25 MG TAB PO PRN (15:43)
[2021-06-22] MEDS ORDERED: Ondansetron ODT 8 MG TAB SL PRN (15:43)
[2021-06-22] MEDS: traMADol HCl 50 MG TAB PO PRN (16:31)
[2021-06-22 16:37] VITALS: TEMP 98.7
[2021-06-22] MEDS: HYDROcodone/Acetaminophen 7.5/325 mg Tablet PO PRN (20:05)
[2021-06-22 22:40] VITALS: BP 100/66
== END 2021-06-22 20:25 | DRG 26 ==
LOC: SJJU 22:29 → CCU 06-08 15:37 → SURG A 06-21 13:39
PROVIDERS: ADMIT Surgery; ATTEND Surgery
PROC: 009630Z Drainage of Cerebral Ventricle with Drainage Device, Percutaneous Approach (ICD-10-PCS; principal; 2021-06-08)
PROC: 00B00ZZ Excision of Brain, Open Approach (ICD-10-PCS; 2021-06-11)
PROC: 00160J6 Bypass Cerebral Ventricle to Peritoneal Cavity with Synthetic Substitute, Open Approach (ICD-10-PCS; 2021-06-21)
DX: G91.0 Communicating hydrocephalus (principal); N39.0 Urinary tract infection, site not specified; G93.40 Encephalopathy, unspecified; Z20.822 Contact with and (suspected) exposure to COVID-19; G89.29 Other chronic pain; K59.00 Constipation, unspecified; J45.909 Unspecified asthma, uncomplicated; E11.9 Type 2 diabetes mellitus without complications; E66.9 Obesity, unspecified; G91.1 Obstructive hydrocephalus; H51.0 Palsy (spasm) of conjugate gaze; D35.4 Benign neoplasm of pineal gland; B96.5 Pseudomonas (aeruginosa) (mallei) (pseudomallei) as the cause of diseases classified elsewhere; H53.2 Diplopia; Z68.37 Body mass index [BMI] 37.0-37.9, adult
CPT/HCPCS: 36415; 36416; 70450; 70553; 71045; 80048; 80053; 81001; 82105; 82805; 82945; 83001; 83002; 83735; 84100; 84157; 84702; 85007; 85025; 85027; 85610; 86850; 86900; 86901; 87070; 87077; 87086; 87186; 87205; 88307; 88325; 88331; 89051; 93970; 94640; A9579; C1713; C9113; J0171; J0360; J0690; J0692; J0696; J0744; J1100; J1200; J1650; J1953; J2001; J2270; J2405; J2550; J2704; J3010; J3370; J3490; J7050; J7626; J8540; P9045; Q0162; S0020; S0028

== ENCOUNTER 2021-07-23 11:35 | Outpatient (CLI) | payer MEDICARE, MEDICAID | END 2021-07-23 11:36 | disposition home or self-care (01) | LOC: MRI 11:35 | PROVIDERS: ATTEND Radiology Radiation Oncology | DX: C75.3 Malignant neoplasm of pineal gland (principal); Z98.890 Other specified postprocedural states; D32.0 Benign neoplasm of cerebral meninges; M47.812 Spondylosis without myelopathy or radiculopathy, cervical region; M47.814 Spondylosis without myelopathy or radiculopathy, thoracic region; M50.30 Other cervical disc degeneration, unspecified cervical region; M40.202 Unspecified kyphosis, cervical region; M48.02 Spinal stenosis, cervical region; M48.061 Spinal stenosis, lumbar region without neurogenic claudication; M43.16 Spondylolisthesis, lumbar region; M51.36 Other intervertebral disc degeneration, lumbar region; M47.816 Spondylosis without myelopathy or radiculopathy, lumbar region | CPT/HCPCS: 70553; 72156; 72157; 72158 ==

== ENCOUNTER 2021-11-05 09:23 | Outpatient (CLI) | payer MEDICARE, MEDICAID | END 2021-11-05 09:24 | disposition home or self-care (01) | LOC: TBSIIMAG 09:23 | PROVIDERS: ATTEND Radiology Radiation Oncology | DX: D49.7 Neoplasm of unspecified behavior of endocrine glands and other parts of nervous system (principal); R22.0 Localized swelling, mass and lump, head; D32.0 Benign neoplasm of cerebral meninges; Z98.890 Other specified postprocedural states | CPT/HCPCS: 70553 ==

== ENCOUNTER 2022-02-27 08:18 | Outpatient (CLI) | payer MEDICARE, MEDICAID | END 2022-02-27 08:19 | disposition home or self-care (01) | LOC: TBSIIMAG 08:18 | PROVIDERS: ATTEND Radiology Radiation Oncology | DX: C75.3 Malignant neoplasm of pineal gland (principal); Z98.890 Other specified postprocedural states | CPT/HCPCS: 70553 ==

== ENCOUNTER 2022-09-05 08:42 | Outpatient (CLI) | payer MEDICARE, OTHER | END 2022-09-05 08:43 | disposition home or self-care (01) | LOC: TBSIIMAG 08:42 | PROVIDERS: ATTEND Radiology Radiation Oncology | DX: D49.7 Neoplasm of unspecified behavior of endocrine glands and other parts of nervous system (principal); D32.0 Benign neoplasm of cerebral meninges; G93.89 Other specified disorders of brain; R90.89 Other abnormal findings on diagnostic imaging of central nervous system | CPT/HCPCS: 70553 ==

== ENCOUNTER 2022-12-09 12:40 | Outpatient (CLI) | payer MEDICARE, OTHER | END 2022-12-09 12:41 | disposition home or self-care (01) | LOC: TBSIIMAG 12:40 | PROVIDERS: ATTEND Radiology Radiation Oncology | DX: C75.3 Malignant neoplasm of pineal gland (principal); R90.89 Other abnormal findings on diagnostic imaging of central nervous system; G96.198 Other disorders of meninges, not elsewhere classified | CPT/HCPCS: 70553 ==

== ENCOUNTER 2023-03-05 12:31 | Outpatient (CLI) | payer MEDICARE, OTHER ==
[~2023-03-05 12:31] MED LIST: Magnevist 469MG/ML 20 ML VIAL ONE
== END 2023-03-05 12:32 | disposition home or self-care (01) ==
LOC: TBSIIMAG 12:31
PROVIDERS: ATTEND Radiology Radiation Oncology
DX: C75.3 Malignant neoplasm of pineal gland (principal); G89.3 Neoplasm related pain (acute) (chronic); D32.0 Benign neoplasm of cerebral meninges; Z98.890 Other specified postprocedural states
CPT/HCPCS: 70553; A9579